=== PATIENT | female | born 1985 | race Caucasian/White ===

== ENCOUNTER → 2018-02-06 11:53 | Outpatient (CLI) | payer OTHER, SELFPAY ==
[2018-02-06 12:32] LABS: Add Manual Diff / Slide Review NO; Basophils Percent Auto 0.2 % (0-2); Eosinophils Percent Auto 1.1 % (2-4); Hematocrit 39.7 % (36-46); Hemoglobin 13.4 g/dL (12.0-16.0); Mean Corpuscular HGB Conc 33.9 % (30-36); Mean Corpuscular Volume 85.7 fL (80-100); Monocytes Percent Auto 4.9 % (3-14); Neutrophils Absolute Auto 7000 /uL (3000-5900); Neutrophils Percent Auto 63.8 % (50-75); Platelet Count 238 X10^3/uL (150-400); Red Blood Cell Count 4.63 X10^6/uL (4.0-5.2); Red Cell Distribution Width 12.5 % (11.6-14.8)
[2018-02-06 12:46] LABS: Alanine Aminotransferase 23 IU/L (9-52); Albumin 4.6 g/dL (3.5-5.0); Albumin Globulin Ratio 1.5 (1.0-2.8); Alkaline Phosphatase 53 U/L (38-126); Aspartate Aminotransferase 24 IU/L (14-36); BUN Creatinine Ratio 16.3 (6-22); Bilirubin Total 0.6 mg/dL (0.2-1.3); Blood Urea Nitrogen 13 mg/dL (7-17); C-Reactive Protein Quant 0.7 mg/dL (<1.0); Carbon Dioxide 28 mmol/L (22-32); Chloride 103 mmol/L (98-107); Cholesterol 161 mg/dL (140-199); Estimated Glomerular Filt Rate > 60.0 mL/min (>60); Globulin 3.1 g/dL (1.7-4.1); Glucose 91 mg/dL (70-100); HDL Cholesterol 71 mg/dL (40-60); HEMOLYSIS < 15 (0-50); LDL Cholesterol Calculated 70 mg/dL (<100); Potassium 4.1 mmol/L (3.4-5.1); Sodium 142 mmol/L (137-145); Total Protein 7.7 g/dL (6.3-8.2); Triglycerides 101 mg/dL (35-150)
[2018-02-06 12:54] LABS: Erythrocyte Sedimentation Rate 21 MM/HR (0-20)
[2018-02-06 13:15] LABS: TSH w/ Reflex to FT4 0.87 uIU/mL (0.47-4.68)
[2018-02-06 13:34] LABS: Vitamin B12 787 pg/mL (239-931)
[2018-02-06 15:03] LABS: Vitamin D 25 Hydroxy (D3) 37.1 ng/mL (30.0-100.0)
[2018-02-11 21:28] LABS: (tTG) Ab, IgA < 1 U/mL
== END ==
PROVIDERS: PCP Family Medicine; Visit Provider Family Medicine
DX: M25.50 Pain in unspecified joint (principal); R21 Rash and other nonspecific skin eruption
CPT/HCPCS: 36415; 80053; 80061; 82306; 82607; 83516; 84443; 85025; 85651; 86140; 86255

== ENCOUNTER → 2018-05-06 15:21 | Outpatient (CLI) | payer OTHER, SELFPAY ==
[2018-05-06 17:37] LABS: Urine N gonorrhoeae NOT DETECTED
[2018-05-06 18:06] LABS: Urine Chlamydia NOT DETECTED
[2018-05-06 18:11] LABS: HIV 1 and 2 Antibody NEGATIVE (NEGATIVE)
[2018-05-06 21:28] LABS: TSH w/ Reflex to FT4 1.08 uIU/mL (0.47-4.68)
[2018-05-08 11:24] LABS: RPR Screen Nonreactive (Nonreactive)
[2018-05-08 16:05] LABS: Hepatitis A Antibody IgM NONREACTIVE (NONREACTIVE); Hepatitis Acute Panel Interp 0.02 (NONREACTIVE); Hepatitis B Core Antibody IgM NONREACTIVE (NONREACTIVE); Hepatitis B Surface Antigen NONREACTIVE (NONREACTIVE); Hepatitis C Antibody NONREACTIVE
== END ==
PROVIDERS: Family Provider Family Medicine; PCP Family Medicine; Visit Provider Family Medicine
DX: A64 Unspecified sexually transmitted disease (principal); R79.89 Other specified abnormal findings of blood chemistry
CPT/HCPCS: 36415; 80074; 84443; 86592; 86703; 87491; 87591